=== PATIENT | male | born 1975 | race Caucasian/White ===

== ENCOUNTER 2021-06-04 22:04 | Emergency (ER) | payer OTHER, MEDICAID ==
[~2021-06-04] VITALS: Ht 185.4 cm; Wt 90.7 kg
[2021-06-04 22:20] VITALS: BP_SYST 99
--- NOTE | 2021-06-04 22:56 | NUR ---
Patient to ER bed 4 to gown for evaluation. Side rails up. Report given to Merced PHELPS(heather).
--- NOTE | 2021-06-04 23:01 | NUR ---
PT COMES TO ER AMBULATING FROM HOME FOR C/O SUDDEN ONSET OF EPIGASTRIC PAIN RADIATING TO BACK AFTER EATING DINNER. PAIN HAS SUBSIDED AT THIS TIME. HE DENIES ANY N/V/D, NO FEVERS. REPORTS HISTORY OF PANCREATITIS AND RENAL FAILURE SECONDARY TO DIABETES. PT IN NAD. RESP EVEN AND UNALBLORED, ON RA @98%. ABD ROUND/SOFT, NT TO PALPATION. SKIN W/D/I.
--- NOTE | 2021-06-04 23:22 | NUR ---
DR WISE AT BEDSIDE FOR EXAM
[2021-06-04 23:24] LABS: BASOPHILS % (AUTO) 0.3 % (0.0-2.0); CALCIUM 8.8 mg/dL (8.4-11.0); EOSINOPHILS # (AUTO) 0.1 K/uL (0.0-0.4); EOSINOPHILS % (AUTO) 1.6 % (0.0-4.0); HEMATOCRIT 32.5 % (36-54); HEMOGLOBIN 11.2 g/dL (14.0-18.0); LYMPHOCYTES # (AUTO) 0.6 K/uL (1.0-5.5); LYMPHOCYTES % (AUTO) 7.8 % (20.5-51.5); MEAN CORPUSCULAR HEMOGLOBIN 33 pg (27-31); MEAN CORPUSCULAR HGB CONC 35 % (32-36); MEAN CORPUSCULAR VOLUME 95 fL (79.0-98.0); MONOCYTES # (AUTO) 0.6 K/uL (0.0-1.0); NEUTROPHILS # (AUTO) 6.2 K/uL (1.8-7.7); NEUTROPHILS % (AUTO) 82.3 % (40.0-70.0); PLATELET COUNT (AUTO) 157 K/uL (130-430); POTASSIUM 3.6 mmol/L (3.5-5.1); RED CELL DISTRIBUTION WIDTH 14.4 % (9.0-15.0); WHITE BLOOD COUNT (AUTO) 7.5 K/uL (4.8-10.8)
[2021-06-04 23:30] LABS: ALBUMIN 3.7 g/dL (3.4-4.8); TOTAL BILIRUBIN 0.2 mg/dL (0.0-1.0)
[2021-06-04 23:40] LABS: CREATININE 8.8 mg/dL (0.55-1.30)
[2021-06-05] MEDS ORDERED: ANT30 PO (00:03)
[2021-06-05] MEDS ORDERED: FAMO20TA8 PO (00:03)
[2021-06-05 00:13] VITALS: BP_SYST 99
--- NOTE | 2021-06-05 00:13 | NUR ---
Patient given written and verbal discharge instructions and verbalizes understanding. ER MD discussed with patient the results and treatment provided. Patient in stable condition. ID arm band removed. IV catheter removed intact and dressing applied, no active bleeding. Rx of MAG HYDROX/SIMETH given. Patient educated on pain management and to follow up with PMD. Pain Scale . Opportunity for questions provided and answered. Medication side effect fact sheet provided.
== END 2021-06-05 00:13 | disposition home or self-care (01) ==
LOC: SED 22:04
DX: R10.13 Epigastric pain (principal); E11.22 Type 2 diabetes mellitus with diabetic chronic kidney disease; N18.6 End stage renal disease; Z99.2 Dependence on renal dialysis; Z79.899 Other long term (current) drug therapy
CPT/HCPCS: 36415; 80053; 81002; 83690; 85025; 99283